=== PATIENT | male | born 1970 | race Caucasian/White ===

== ENCOUNTER 2017-11-22 13:06 | Emergency (ER) | END 2017-11-22 18:54 | disposition home or self-care (01) ==

== ENCOUNTER 2019-02-10 13:13 | Emergency (ER) | payer MEDICAID ==
[~2019-02-10] VITALS: Wt 81.0 kg
[2019-02-10 13:20] VITALS: BP 144/89; PULSE 97; RESP 18
[2019-02-10] MEDS ORDERED: KETOROLAC 30 MG INJ IM STA (13:39)
[2019-02-10] MEDS ORDERED: CYCL10TA7 PO (13:46)
--- NOTE | 2019-02-10 13:50 | ERD ---
ER Documentation Chief Complaint Chief Complaint HERNIA PAIN X 1 WEEK HPI 48-year-old male presenting to the ED for a hernia in his groin region. Patient states he has had a hernia for a while and he wants to get it checked out to see if it needs surgery. Patient denies any nausea vomiting diarrhea. Patient denies inability to pass stool or urine. Patient denies any open skin lesions. Patient states the pain is only mild at this point and that the hernia does not affect his daily living but is just more annoying and he wants to see if he can get it repaired. Patient denies any allergies to medications. Patient states he has not seen anyone for this hernia for surgical consult yet. ROS All systems reviewed and are negative except as per history of present illness. Medications Home Meds Active Scripts Methylprednisolone* (Medrol* DOSE PACK) 4 Mg/Dose-Pack Tab.ds.pk, 4 MG PO . DIRECTED for 7 Days, PACKET Prov:DOUGLAS LOPEZ PA-C 02/10/19 Cyclobenzaprine Hcl* (Cyclobenzaprine Hcl*) 10 Mg Tablet, 10 MG PO TID, #15 TAB Prov:DOUGLAS LOPEZ PA-C 02/10/19 Allergies Allergies: Coded Allergies: No Known Allergy (Unverified , 11/22/17) PMhx/Soc Medical and Surgical Hx: pt denies Medical Hx History of Surgery: Yes (bilateral inguinal hernia sx) Anesthesia Reaction: No Hx Neurological Disorder: No Hx Respiratory Disorders: No Hx Cardiac Disorders: No Hx Psychiatric Problems: No Hx Miscellaneous Medical Probl: No Hx Alcohol Use: Yes (ALMOST DAILY) Hx Substance Use: No Hx Tobacco Use: No Smoking Status: Never smoker FmHx Family History: No diabetes, No coronary disease, No other Physical Exam Vitals Vital Signs Date Temp Pulse Resp B/P (MAP) Pulse Ox O2 O2 Flow FiO2 Time Delivery Rate 02/10/19 98.0 97 18 144/89 99 13:20 (107) Physical Exam Resp: Clear to auscultation bilaterally Cardio: Regular rate and rhythm, no murmurs Abd: Soft, non tender, non distended. Normal bowel sounds, patient has inguinal hernia non-strangulated palpable in left inguinal region. Back; no CVA tenderness, no pain to palpation, straight leg raise provoked pain in the left lower SI region. Skin: No petechiae or rashes Results 24 hrs Current Medications Medications Dose Sig/Teetee Start Time Status Last (Trade) Ordered Route PRN Stop Time Admin Dose Reason Admin 10 mg ONCE ONCE 02/10/19 DC 02/10/19 Cyclobenzapri PO 14:00 14:01 ne HCl 02/10/19 14:01 (Flexeril) Ketorolac 30 mg ONCE STAT 02/10/19 DC 02/10/19 Tromethamine IM 13:39 14:01 (Toradol) 02/10/19 13:40 Procedures/MDM Medications given in ER: Cyclobenzaprine Toradol Patient tolerated medication well with no adverse reactions. Patient reported improvement in pain. Medical decision making: Patient is a 48-year-old male presented to ED for a inguinal hernia. Patient states he has had the hernia for a few months now and it is not getting any better. Patient states he also suffers from chronic back pain with sciatica. Patient's physical exam revealed a non-strangulated hernia located in the left inguinal region. The hernia is small and palpable and is not fixed. The testicles lie and normal region with no pain on palpation. At this time I have low suspicion for strangulate it hernia, testicular torsion, abscess. Patient also states he has chronic back pain he had no CVA tenderness he is not an IV drug user he has no numbness or tingling in his groin region and has no difficulty passing urine or stool. Straight leg raise provoked pain in the left SI joint. At this time I have low suspicion for cauda equine syndrome, spinal fractures, epidural abscess, spinal metastases, osteomyelitis, aortic dissection, ruptured or leaking AA, DJD, sciatica, lumbar strain, muscle spasm, pyelonephritis or nephrolithiasis. She was given cyclobenzaprine in the ED and a Toradol injection. On reevaluation 45 minutes afterwards the patient states the back pain feels better. I gave the patient resources of how to follow-up to get with a general surgeon regarding his hernia. Advised patient needs follow- up with his primary care provider this week regarding this visit. I advised patient the symptoms worsen return to ER immediately. The patient is in agreement the treatment plan and all questions were answered upon discharge Prescription for home: Medrol Dosepak Cyclobenzaprine I have discussed with the patient proper use and common side effects to expert with the medication . I advised the patient/family to speak with the pharmacist dispensing the medication to be advised of any potential drug interactions with other medication or supplements they may be taking. Discharge: At this time, patient is stable for discharge and outpatient management. I have instructed the patient to follow-up with his\her primary care physician in 1 to 2 days. I have discussed with the patient the possibility of needing to see a specialist for further work-up and imaging studies if symptoms persist. I have instructed the patient to promptly return to the ER for any new or worsening symptoms including increased pain, fever, nausea, vomiting, weakness or LOC. The patient and\or family expressed understanding of and agreement with this plan. All questions were answered. Home care instructions were provided. Disclaimer: Inadvertent spelling and grammatical errors are likely due to EHR\dictation software use and do not reflect on the overall quality of patient care. Also, please note that the electronic time recorded on the note does not necessarily reflect the actual time of the patient encounter. Departure Diagnosis: Primary Impression: Inguinal hernia Obstruction and gangrene presence: without obstruction or gangrene Laterality: unilateral Recurrence: recurrent Qualified Codes: K40.91 - Unilateral inguinal hernia, without obstruction or gangrene, recurrent Condition: Stable Patient Instructions: Hernia Repair Surgery, Hernia (Inguinal, Ventral, Umbilical) Referrals: TRICIA DELAROSA MD, NAGARAJ M MD [facility] YOU HAVE RECEIVED A MEDICAL SCREENING EXAM AND THE RESULTS INDICATE THAT YOU DO NOT HAVE A CONDITION THAT REQUIRES URGENT TREATMENT IN THE EMERGENCY DEPARTMENT. FURTHER EVALUATION AND TREATMENT OF YOUR CONDITION CAN WAIT UNTIL YOU ARE SEEN IN YOUR DOCTORS OFFICE WITHIN THE NEXT 1-2 DAYS. IT IS YOUR RESPONSIBILITY TO MAKE AN APPOINTMENT FOR FOLOW-UP CARE. IF YOU HAVE A PRIMARY DOCTOR --you should call your primary doctor and schedule an appointment IF YOU DO NOT HAVE A PRIMARY DOCTOR YOU CAN CALL OUR PHYSICIAN REFERRAL HOTLINE AT IF YOU CAN NOT AFFORD TO SEE A PHYSICIAN YOU CAN CHOSE FROM THE FOLLOWING [facility] [address] [facility] [address] [facility] [address] [facility] [address] [facility] [address] [facility]. [facility] [address] [facility]. [facility] YOU HAVE RECEIVED A MEDICAL SCREENING EXAM AND THE RESULTS INDICATE THAT YOU DO NOT HAVE A CONDITION THAT REQUIRES URGENT TREATMENT IN THE EMERGENCY DEPARTMENT. FURTHER EVALUATION AND TREATMENT OF YOUR CONDITION CAN WAIT UNTIL YOU ARE SEEN IN YOUR DOCTORS OFFICE WITHIN THE NEXT 1-2 DAYS. IT IS YOUR RESPONSIBILITY TO MAKE AN APPOINTMENT FOR FOLOW-UP CARE. IF YOU HAVE A PRIMARY DOCTOR --you should call your primary doctor and schedule and appointment IF YOU DO NOT HAVE A PRIMARY DOCTOR YOU CAN CALL OUR PHYSICIAN REFERRAL HOTLINE AT . IF YOU CAN NOT AFFORD TO SEE A PHYSICIAN YOU CAN CHOSE FROM THE FOLLOWING [facility] INSTITUTIONS: [facility] [address] [place] [address] [facility] [address] [place] [address] [facility] [address] [place] [address] [facility] () Uskayla se mccollum hecho un examen mdico de control que le indica que no est en sharmila condicin que requiera tratamiento urgente en el Departamento de Emergencia. Un estudio ms profundo y el tratamiento de saul condicin pueden esperar sin ningn riesgo hasta que usted sea atendida/o en el consultorio de saul mdico o sharmila clnica. Es responsabilidad suya arreglar sharmila kerri para el seguimiento del caterina. MANEJO DE CONDICIONES NO URGENTES EN EL FUTURO 1) Si usted tiene un mdico de atencin primaria: Usted debera llamar a saul mdico de atencin primaria antes de venir al departamento de emergencia. Despus de las horas de consultorio, saul doctor o saul asociado/a est disponible por telfono. El mdico o enfermero de bere en el servicio telefnico puede asesorarle por luz medio para atender el problema, o caterina contrario se puede programar sharmila kerri. 2) Si usted no tiene un mdico de atencin primaria: Llame al mdico o condado institucions de referencia que aparece abajo sanjana las horas de consultorio para hacer sharmila kerri para que le vean. SI USTED NO PUEDE PAGAR PARA JEANNE UN MEDICO puede ir a: [facility] [address] [place] [address] [facility] [address] [place] [address] [facility] [address] [place] [address] [facility] [address] [place] [address] [facility] URGENT CARE/SPECIALTIES Additional Instructions: Llame al doctor MAANA y buzz sharmila KERRI PARA DENTRO DE 1-2 POLO.Dgale a la secretaria que nosotros le instruimos hacer esta kerri.Avise o llame si saul condicin se empeora antes de la kerri. Regresa aqui si peor o no mejor. DOUGLAS LOPEZ PA-C Feb 10, 2019 13:50
[2019-02-10] MEDS ORDERED: MED4DP PO (13:51)
[2019-02-10] MEDS ORDERED: CYCLOBENZAPRINE 10 MG TAB PO ONE (14:00)
== END 2019-02-10 14:36 | disposition home or self-care (01) ==
LOC: FTE 13:13
DX: K40.91 Unilateral inguinal hernia, without obstruction or gangrene, recurrent (principal)
CPT/HCPCS: 96372; J1885; Z7502; Z7610